=== PATIENT | female | born 1960 | race Caucasian/White ===

== ENCOUNTER 2019-02-19 21:02 | Emergency (ER) | payer BC ==
[2019-02-19] MEDS ORDERED: Acetaminophen/HYDROcodone 325-10 MG Tab PO ONE (21:03)
[2019-02-19] MEDS ORDERED: Cyclobenzaprine 10 MG Tab PO ONE ×2 (21:03→22:20)
[2019-02-19 22:01] VITALS: BP 132/76
[2019-02-19] MEDS ORDERED: Ketorolac 30 MG/ML SDV IM ONE (22:20)
--- NOTE | 2019-02-19 22:29 | EDM.PDOC ---
ED HPI GENERAL MEDICAL PROBLEM - General Chief Complaint: Back Pain or Injury Stated Complaint: BACK PAIN Time Seen by Provider: 02/19/19 22:10 Source of Information: Reports: Patient History Limitations: Reports: No Limitations - History of Present Illness INITIAL COMMENTS - FREE TEXT/NARRATIVE: getting up from floor at work, sudden onset of pain low back and both buttocks, no weakness or tingling. No prior back injuries. [employer] at [place] in [employer] [facility]. Denies any heavy lifting . No weakness no numbness or tingling. No nausea or vomiting. No incontinence Lower Back Pain Score (Numeric/FACES): 8 - Related Data Allergies Allergy/AdvReac Type Severity Reaction Status Date / Time meperidine HCl [From Demerol] Allergy Vomiting Verified 02/19/19 21:25 Home Meds: Home Meds . [No Known Home Meds] 02/19/19 [History] Past Medical History Psychiatric History: Reports: Anxiety Social & Family History - Family History Family Medical History: Noncontributory - Tobacco Use Smoking Status *Q: Current Every Day Smoker Years of Tobacco use: 47 Packs/Tins Daily: 0.5 Used Tobacco, but Quit: No Second Hand Smoke Exposure: Yes - Caffeine Use Caffeine Use: Reports: Coffee, Soda - Recreational Drug Use Recreational Drug Use: No ED ROS GENERAL - Review of Systems Review Of Systems: ROS reveals no pertinent complaints other than HPI. ED EXAM,LOWER BACK PAIN/INJURY - Physical Exam Exam: See Below Exam Limited By: No Limitations General Appearance: Alert, Moderate Distress (with movement) Eye Exam: Bilateral Eye: EOMI Ears: Normal External Exam Nose: Normal Inspection Throat/Mouth: Normal Inspection Head: Atraumatic, Normocephalic Neck: Normal Inspection Respiratory/Chest: No Respiratory Distress, Lungs Clear, Normal Breath Sounds Cardiovascular: Normal Peripheral Pulses, Regular Rate, Rhythm GI/Abdominal: Soft Extremities: Normal Inspection, Normal Range of Motion, Other (low back sacral pain with palpation and movmentg greater right with movment and greater left with palpation. No radiation of pain.) Neurological: Alert, Normal Mood/Affect, Normal Reflexes, Oriented x 3, Extensor Response to Pain, Flexor Response to Pain, Straight Leg Raise (L), Straight Leg Raise (R). No: Abnormal Gait Psychiatric: Normal Affect Skin Exam: Warm, Dry, Intact, Normal Color Course - Vital Signs Last Recorded V/S: Last Vital Signs Temp 97.8 F 02/19/19 22:00 Pulse 77 02/19/19 22:00 Resp 18 02/19/19 22:00 BP 132/76 02/19/19 22:00 Pulse Ox 98 02/19/19 22:00 - Orders/Labs/Meds Meds: Medications Discontinued Medications Generic Name Dose Route Start Last Admin Trade Name Roney PRN Reason Stop Dose Admin Hydrocodone Bitart/Acetaminophen Confirm 02/19/19 22:32 02/19/19 22:38 Votaw 325-10 Mg Administered 02/19/19 22:33 Not Given Dose 1 tab .ROUTE .STK-MED ONE Hydrocodone Bitart/Acetaminophen Confirm 02/19/19 22:34 02/19/19 22:39 Votaw 325-10 Mg Administered 02/19/19 22:35 Not Given Dose 1 tab .ROUTE .STK-MED ONE Cyclobenzaprine HCl 10 mg 02/19/19 22:20 02/19/19 22:37 Flexeril PO 02/19/19 22:21 10 mg ONETIME ONE Administration Cyclobenzaprine HCl Confirm 02/19/19 22:31 02/19/19 22:39 Flexeril Administered 02/19/19 22:32 Not Given Dose 10 mg .ROUTE .STK-MED ONE Ketorolac Tromethamine 30 mg 02/19/19 22:20 02/19/19 22:37 Toradol IM 02/19/19 22:21 30 mg ONETIME ONE Administration Departure - Departure Time of Disposition: 22:26 Disposition: Home, Self-Care 01 Condition: Good Clinical Impression: Low back pain - Discharge Information *PRESCRIPTION DRUG MONITORING PROGRAM REVIEWED*: No *COPY OF PRESCRIPTION DRUG MONITORING REPORT IN PATIENT OMARI: No Instructions: Acute Back Pain, Adult Referrals: PCP,None [Primary Care Provider] - Forms: ED Department Discharge Additional Instructions: rest, no lifting greater than 10 32 x 24 hours advance as tolerated clinic follow up next week if continued pain ibuprofen 600mg every 6 hours as needed for discomfort flexeril 10mg every 8 hours as needed for spasm hydrocodone 10/325 one every 6 hours s needed for severe pain #2 may alternate tylenol 650mg with ibuprofen ice or heat to low back
[2019-02-19] MEDS ORDERED: Cyclobenzaprine 10 MG Tab ONE (22:31)
[2019-02-19] MEDS ORDERED: Acetaminophen/HYDROcodone 325-10 MG Tab ONE ×2 (22:32→22:34)
== END 2019-02-19 22:43 | disposition home or self-care (01) ==
LOC: DL.ED 21:02
DX: M54.5 Low back pain (principal); F17.210 Nicotine dependence, cigarettes, uncomplicated; Z88.5 Allergy status to narcotic agent
CPT/HCPCS: 96372; 99282; A9270; J1885

== ENCOUNTER 2022-05-07 05:51 | Day surgery (SDC) | payer BC, OTHER ==
[2022-05-07] MEDS ORDERED: Midazolam 1 MG/ML 2 ML SDV IV ONE ×7 (05:52→07:17)
[2022-05-07] MEDS ORDERED: fentaNYL 100 MCG/2 ML SDV IV ONE ×7 (05:52→07:28)
[2022-05-07] MEDS ORDERED: Sodium Chloride 0.9% 10 ML Syringe FLUSH PRN (06:00)
[2022-05-07] MEDS ORDERED: Dextrose 5%-0.45% NaCl 1,000 ML IV SCH (06:00)
[2022-05-07] MEDS ORDERED: fentaNYL 100 MCG/2 ML SDV ONE (06:09)
[2022-05-07] MEDS ORDERED: Midazolam 1 MG/ML 2 ML SDV ONE (06:09)
[2022-05-07 08:38] VITALS: BP 91/53; PULSE 63
[2022-05-07] MEDS ORDERED: Sodium Chloride 0.9% 10 ML Syringe FLUSH SCH (09:00)
== END 2022-05-07 09:00 | disposition home or self-care (01) ==
LOC: DL.ENDO 05:51
PROVIDERS: ATTEND Internal Medicine Gastroenterology
DX: Z12.11 Encounter for screening for malignant neoplasm of colon (principal); K62.1 Rectal polyp; E78.5 Hyperlipidemia, unspecified; Z88.5 Allergy status to narcotic agent; Z90.49 Acquired absence of other specified parts of digestive tract; Z98.890 Other specified postprocedural states
CPT/HCPCS: J2250; J3010; J7042

== ENCOUNTER 2022-07-25 17:15 | Emergency (ER) | payer OTHER ==
[2022-07-25] MEDS ORDERED: Acetaminophen 500 MG Tab PO ONE (17:26)
[2022-07-25] MEDS ORDERED: Ibuprofen 800 MG Tab PO ONE (17:27)
[2022-07-25 17:41] VITALS: BP 98/76; PULSE 126
[2022-07-25 18:08] LABS: RESPIRATORY SYNCYTIAL VIR NAA NEGATIVE (NEGATIVE)
[2022-07-25 18:15] LABS: CORONAVIRUS COVID-19 NAA POSITIVE (NEGATIVE)
== END 2022-07-25 18:31 | disposition home or self-care (01) ==
LOC: DL.ED 17:15
DX: U07.1 COVID-19 (principal); E78.00 Pure hypercholesterolemia, unspecified; I25.2 Old myocardial infarction; Z88.5 Allergy status to narcotic agent; Z79.82 Long term (current) use of aspirin
CPT/HCPCS: 0241U; 99283; A9270-GY